=== PATIENT | female | born 1980 | race Caucasian/White ===

== ENCOUNTER 2017-03-11 02:22 | Emergency (ER) | payer SELFPAY ==
[2017-03-11 02:44] VITALS: BP 111/71
[2017-03-11 03:39] LABS: Basophils % (Auto) 0.5 % (0.0-1.8); Eosinophils % (Auto) 1.5 % (0.0-4.3); Hematocrit 29.9 % (30.3-42.9); Hemoglobin 9.8 gm/dl (10.1-14.3); Mean Corpuscular HGB Conc 33 % (30-34); Mean Corpuscular Volume 74 fl (79-97); Platelet Count 288 K/mm3 (140-440); Red Blood Count 4.06 M/mm3 (3.65-5.03); Red Cell Distribution Width 18.7 % (13.2-15.2); White Blood Count 7.4 K/mm3 (4.5-11.0)
[2017-03-11 04:10] LABS: Anion Gap 16 mmol/L; BUN/Creatinine Ratio 18.57; Blood Urea Nitrogen 13 mg/dL (7-17); Calcium 8.4 mg/dL (8.4-10.2); Carbon Dioxide 24 mmol/L (22-30); Chloride 106.3 mmol/L (98-107); Glucose 134 mg/dL (65-100); Potassium 3.7 mmol/L (3.6-5.0); Sodium 143 mmol/L (137-145)
[2017-03-11 04:27] LABS: Mean Corpuscular Hemoglobin 24 pg (28-32)
--- NOTE | 2017-03-13 14:30 | ED Elopement Review ---
ED Pt Elopement review - Results review Lab results: Laboratory Tests 03/11/17 03/11/17 03:11 03:11 WBC 7.4 RBC 4.06 Hgb 9.8 L Hct 29.9 L MCV 74 L MCH 24 L MCHC 33 RDW 18.7 H Plt Count 288 Lymph % (Auto) 29.4 Dolores % (Auto) 4.2 Eos % (Auto) 1.5 Baso % (Auto) 0.5 Lymph # 2.2 Dolores # 0.3 Eos # 0.1 Baso # 0.0 Seg Neutrophils % 64.4 Seg Neutrophils # 4.8 Sodium 143 Potassium 3.7 Chloride 106.3 Carbon Dioxide 24 Anion Gap 16 BUN 13 Creatinine 0.7 Estimated GFR > 60 BUN/Creatinine Ratio 18.57 Glucose 134 H Calcium 8.4 Troponin T < 0.010 - Call Back decision Pt Call Back Decision: No action required
== END 2017-03-11 08:32 | disposition left against medical advice (07) ==
LOC: ED 02:22
DX: R07.89 Other chest pain (principal); R51 Headache; Z53.21 Procedure and treatment not carried out due to patient leaving prior to being seen by health care provider
CPT/HCPCS: 36415; 80048; 84484; 85025; 93005; 93010